=== PATIENT | female | born 1940 | race Hispanic/Latino ===

== ENCOUNTER 2018-09-22 09:06 | Emergency (ER) | payer MEDICARE ==
[~2018-09-22 09:06] MED LIST: ATOR10TA69 PO; GABA-531 PO; INSLAN SQ; ISOS30TA6 PO; LIRA0.6P SQ; LOSA1TAB37 PO; METF-444 PO; METO100T14 PO; OMEP40CA37 PO; PARO10TA71 PO; RANO500T3 PO
[2018-09-22] MEDS ORDERED: SODIUM BICARB 50MEQ 50ML VIAL ONE (09:39)
== END 2018-09-22 12:04 | disposition home or self-care (01) ==
LOC: EDH 09:06
DX: S62.317A Displaced fracture of base of fifth metacarpal bone, left hand, initial encounter for closed fracture (principal); S00.81XA Abrasion of other part of head, initial encounter; S80.02XA Contusion of left knee, initial encounter; S80.01XA Contusion of right knee, initial encounter; E11.9 Type 2 diabetes mellitus without complications; I10 Essential (primary) hypertension; E78.5 Hyperlipidemia, unspecified; Z79.4 Long term (current) use of insulin; W18.39XA Other fall on same level, initial encounter; Y93.01 Activity, walking, marching and hiking; Y92.89 Other specified places as the place of occurrence of the external cause; Y99.8 Other external cause status
CPT/HCPCS: 70450; 72125; 73130; 99284; J3490

== ENCOUNTER 2019-08-06 23:46 | Emergency (ER) | payer MEDICARE ==
[2019-08-07 00:14] LABS: BASOPHILS % (AUTO) 0.6 % (0.0-5.0); EOSINOPHILS % (AUTO) 2.3 % (0.0-8.0); HEMATOCRIT 32.9 % (36-48); LYMPHOCYTES % (AUTO) 51.9 % (21.0-51.0); MEAN CORPUSCULAR HEMOGLOBIN 32.8 pg (27.0-33.0); MEAN CORPUSCULAR HGB CONC 34.2 g/dL (32.0-36.0); MONOCYTES % (AUTO) 7.1 % (3.0-13.0); NEUTROPHILS % (AUTO) 38.1 % (40.0-77.0); NUCLEATED RED BLOOD CELLS 0.1 % (0.0-0.19); PLATELET COUNT (AUTO) 235 K/uL (130-400); RED BLOOD CELL COUNT(AUTO) 3.43 MIL/uL (4.00-5.50); RED CELL DISTRIBUTION WIDTH 13.1 % (11.0-15.5); WHITE BLOOD COUNT (AUTO) 7.4 K/uL (4.8-10.8)
[2019-08-07 00:26] LABS: CREATININE 1.2 mg/dL (0.5-1.5); POTASSIUM 4.5 mmol/L (3.5-5.1)
[2019-08-07 00:31] LABS: ALBUMIN 3.2 g/dL (3.5-5.0); BILIRUBIN,TOTAL 0.2 mg/dL (0.2-1.0); TOTAL PROTEIN, SERUM 7.2 g/dL (6.0-8.3)
[2019-08-07] MEDS ORDERED: INSULIN HUMULIN R 100 UNIT/ML 3ML ONE (01:26)
[2019-08-07] MEDS ORDERED: SODIUM CHLORIDE 0.9% 1000ML 1,000 ML IV ONE (01:27)
[2019-08-07 01:57] LABS: APPEARANCE,URINE Clear (CLEAR); BILIRUBIN,URINE Negative (NEGATIVE); COLOR,URINE Yellow (YELLOW); GLUCOSE, URINE (UA) >=1000 mg/dL (NEGATIVE); KETONES,URINE Negative (NEGATIVE); LEUKOCYTE ESTERASE ,URINE Trace (NEGATIVE); NITRATE,URINE Negative (NEGATIVE); OCCULT BLOOD,URINE Negative (NEGATIVE); PROTEIN,URINE Negative (NEGATIVE)
[2019-08-07 03:43] LABS: BACTERIA,URINE Few /HPF (None Seen); RBC,URINE 0-1 /HPF (0-1); WBC,URINE 0-1 /HPF (0-1)
== END 2019-08-07 04:10 | disposition home or self-care (01) ==
LOC: EDH 23:46
DX: J01.00 Acute maxillary sinusitis, unspecified (principal); E11.9 Type 2 diabetes mellitus without complications; R42 Dizziness and giddiness; I10 Essential (primary) hypertension; Z79.4 Long term (current) use of insulin; Z90.49 Acquired absence of other specified parts of digestive tract
CPT/HCPCS: 36415; 70450; 80053; 81001; 82948; 85025; 93005; 96361; 96374; 99285; J1815; J7030

== ENCOUNTER → 2022-02-22 | Outpatient (CLI) | payer MEDICARE ==
[~2022-02-22] MED LIST changes: -ISOS30TA6 PO; +ISOS30TA92 PO; +OMEP40CA21 PO; -OMEP40CA37 PO
== END | disposition home or self-care (01) ==
LOC: SHCH 08:15
PROVIDERS: ATTEND Internal Medicine Cardiovascular Disease
DX: I35.1 Nonrheumatic aortic (valve) insufficiency (principal); I11.9 Hypertensive heart disease without heart failure; I25.119 Atherosclerotic heart disease of native coronary artery with unspecified angina pectoris; E11.9 Type 2 diabetes mellitus without complications; E78.5 Hyperlipidemia, unspecified
CPT/HCPCS: 93306

== ENCOUNTER → 2022-04-19 | Outpatient (CLI) | payer MEDICARE | END | disposition home or self-care (01) | LOC: OIH 11:18 | PROVIDERS: ATTEND Internal Medicine Cardiovascular Disease | DX: I73.9 Peripheral vascular disease, unspecified (principal) | CPT/HCPCS: 93925 ==

== ENCOUNTER → 2022-09-05 | Outpatient (CLI) | payer MEDICARE | END | disposition home or self-care (01) | LOC: SHCH 08:57 | PROVIDERS: ATTEND Internal Medicine Cardiovascular Disease | DX: I87.2 Venous insufficiency (chronic) (peripheral) (principal) | CPT/HCPCS: 93970 ==

== ENCOUNTER → 2024-09-28 | Outpatient (CLI) | payer MEDICARE ==
--- NOTE | 2024-09-28 12:56 | HMCIMG ---
SCOLIOSIS 2-3VW REASON: SCOLIOSIS. COMPARISON: None TECHNIQUE: Scoliosis series was obtained. FINDINGS: There is levoscoliosis of thoracolumbar spine with scoliotic angle of 14 degrees. There are degenerative changes with spondylosis. No loss of vertebral height is seen. IMPRESSION: Scoliosis.
--- NOTE | 2024-09-28 13:00 | HMCIMG ---
LUMBAR W FLEXION/EXTENSION REASON: RIGHT LOW BACK PAIN. COMPARISON: None TECHNIQUE: 4 images of lumbar spine were obtained including flexion and extension views. FINDINGS: Grade 1 anterolisthesis is seen at the L5-S1 level with disc space narrowing. Disc space narrowing are also seen at L2-3, L3-4 and L4-5 levels. There are degenerative changes with spondylosis. Vascular calcifications are seen. IMPRESSION: DJD with spondylosis.
--- NOTE | 2024-09-28 13:02 | HMCIMG ---
SHOULDER COMP 2+VWS RT HISTORY: Pain COMPARISON: None TECHNIQUE: 2 images of right shoulder were obtained. FINDINGS: There is no acute displaced fracture or dislocation. Degenerative changes are seen. IMPRESSION: 1. Findings as described above.
== END | disposition home or self-care (01) ==
LOC: RAH 09:49
PROVIDERS: ATTEND Physical Medicine & Rehabilitation
DX: M19.011 Primary osteoarthritis, right shoulder (principal); M47.816 Spondylosis without myelopathy or radiculopathy, lumbar region; M43.17 Spondylolisthesis, lumbosacral region; M48.061 Spinal stenosis, lumbar region without neurogenic claudication; M41.85 Other forms of scoliosis, thoracolumbar region; M75.101 Unspecified rotator cuff tear or rupture of right shoulder, not specified as traumatic; M25.511 Pain in right shoulder; M54.50 Low back pain, unspecified; M41.9 Scoliosis, unspecified; E66.811 Obesity, class 1
CPT/HCPCS: 72082; 72114; 73030

== ENCOUNTER → 2024-10-16 | Outpatient (CLI) | payer MEDICARE ==
--- NOTE | 2024-10-16 12:19 | HMCIMG ---
MR SPINAL CANAL, LUMBAR WO CON HISTORY: Spinal stenosis COMPARISON: None TECHNIQUE: MRI of the lumbar spine was performed utilizing multiple pulse sequences in axial , coronal and sagittal plane. Patient was not given contrast through intravenous route. FINDINGS: Entered degenerative changes are seen at L2-3 through L5-S1 level. Grade 1 anterolisthesis is seen at the L5-S1 level. No abnormal signal intensity is seen of the visualized bony structure. No loss of vertebral height is seen. There is straightening of normal lumbar curvature which may be related to muscle spasm or positioning. Degenerative disc signals are present at all lumbar spine levels. Visualized distal conus is unremarkable. At the L1-L2 level, there is spondylotic disc causing anterior thecal sac compression with bilateral lateral recess stenosis and minimal bilateral neural foraminal stenosis. The thecal sac measures approximately 8.6 mm in its anterior posterior dimension. At the L2-L3 level, there is spondylotic disc with annular disc bulge and bilateral ligamentum flavum hypertrophy causing anterior thecal sac compression with bilateral lateral recess stenosis and bilateral neural foraminal stenosis. The thecal sac measures approximately 5.9 mm in its anterior posterior dimension. At the L3-L4 level, there is spondylotic disc with annular disc bulge and bilateral ligamentum flavum hypertrophy causing anterior thecal sac compression with bilateral lateral recess stenosis and bilateral neural foraminal stenosis. The thecal sac measures approximately 3.1 mm in its anterior posterior dimension. At the L4-L5 level, there is spondylotic disc with annular disc bulge and bilateral ligamentum flavum hypertrophy causing anterior thecal sac compression with bilateral lateral recess stenosis and bilateral neural foraminal stenosis. The thecal sac measures approximately 1 mm in its anterior posterior dimension. At the L5-S1 level, there is spondylotic disc with annular disc bulge and bilateral ligamentum flavum hypertrophy causing anterior thecal sac compression with bilateral lateral recess stenosis and bilateral neural foraminal stenosis. The thecal sac measures approximately 4.7 mm in its anterior posterior dimension. IMPRESSION: 1. DJD with lumbar spine spondylosis and extensive central canal narrowing from L2-3 through L5-S1 levels.
--- NOTE | 2024-10-16 12:21 | HMCIMG ---
MR SPINAL CANAL, CERV WO CON HISTORY: Spinal stenosis COMPARISON: None TECHNIQUE: MRI of the cervical spine was performed utilizing multiple pulse sequences in axial, coronal and sagittal plane. Patient was not given contrast through intravenous route. FINDINGS: ] Degenerative changes with disc space narrowing are seen at C5-6 level. No abnormal signal intensity is seen of the visualized bony structure. No loss of vertebral height is seen. There is straightening of normal lordotic cervical curvature which may be related to muscle spasm or positioning. Degenerative disc signals are present at all cervical spine levels. Cerebellar tonsils are in normal position. The cervical cord is of normal signal intensity without cord compression or impingement. At the C3-4 level, there is spondylotic disc causing anterior CSF space effacement with bilateral lateral recess stenosis and mild bilateral neural foraminal stenosis. The central canal measures approximately 5. mm in its anterior posterior dimension. At the C4-5 level, there is spondylotic disc causing anterior CSF space effacement with bilateral lateral recess stenosis and mild bilateral neural foraminal stenosis. The central canal measures approximately 4.6 mm in its anterior posterior dimension. At the C5-6 level, there is spondylotic disc with central disc protrusion causing anterior CSF space effacement with bilateral lateral recess stenosis and bilateral neural foraminal stenosis. The central canal measures approximately 3.3 mm in its anterior posterior dimension. At the C6-7 level, there is spondylotic disc with central disc protrusion causing anterior CSF space effacement with bilateral lateral recess stenosis and bilateral neural foraminal stenosis. The central canal measures approximately 5.1 mm in its anterior posterior dimension. IMPRESSION: 1. DJD with cervical spine spondylosis and central canal narrowing as described above.
== END | disposition home or self-care (01) ==
LOC: RAH 11:05
PROVIDERS: ATTEND Physical Medicine & Rehabilitation
DX: M50.223 Other cervical disc displacement at C6-C7 level (principal); M47.812 Spondylosis without myelopathy or radiculopathy, cervical region; M51.379 Other intervertebral disc degeneration, lumbosacral region without mention of lumbar back pain or lower extremity pain; M47.817 Spondylosis without myelopathy or radiculopathy, lumbosacral region; M48.02 Spinal stenosis, cervical region; M48.061 Spinal stenosis, lumbar region without neurogenic claudication
CPT/HCPCS: 72141; 72148

== ENCOUNTER → 2024-12-23 | Outpatient (CLI) | payer MEDICARE ==
--- NOTE | 2024-12-28 09:00 | HMCSR ---
APPROVED REPORT Laterality: Bilateral Indications Claudication: , PAD VELOCITY AND DOPPLER WAVEFORM ANALYSIS ASSISTANT GM OF CONTENT & DELIVERY (R) 152.0cm/sec, Biphasic, ASSISTANT GM OF CONTENT & DELIVERY (L) 146.8cm/sec, Biphasic, Prof Fem Art. (R) 77.4cm/sec, Biphasic, Prof Fem Art. (L) 120.7cm/sec, Biphasic, Fem Art Prox. (R) 122.8cm/sec, Biphasic, Fem Art Prox. (L) 117.5cm/sec, Biphasic, Fem Art Mid. (R) 72.7cm/sec, Biphasic, Fem Art Mid. (L) 78.1cm/sec, Biphasic, Fem Art Dist (R) 83.4cm/sec, Biphasic, Fem Art Dist. (L) 151.7cm/sec, Biphasic, Pop Art(AK) (R) 124.2cm/sec, Biphasic, Pop Art (AK) (L) 127.2cm/sec, Biphasic, Pop Art (Fossa)(R) 106.3cm/sec, Biphasic, Pop Art (Fossa) (L) 137.0cm/sec, Biphasic, Pop Art(BK) (R) 78.7cm/sec, Biphasic, Pop Art (BK) (L) 90.3cm/sec, Biphasic, MACHINE STRAP BUCKLER Prox. (R) cm/sec, Occluded, MACHINE STRAP BUCKLER Prox. (L) 44.9cm/sec, Monophasic, MACHINE STRAP BUCKLER Mid. (R) cm/sec, Occluded, MACHINE STRAP BUCKLER Mid. (L) cm/sec, Occluded, MACHINE STRAP BUCKLER Dist. (R) cm/sec, Occluded, MACHINE STRAP BUCKLER Dist. (L) cm/sec, Occluded, Per Art Prox. (R) 84.2cm/sec, Monophasic, Per Art Prox. (L) 60.0cm/sec, Monophasic, Per Art Mid. (R) 120.7cm/sec, Monophasic, Per Art Mid. (L) 106.5cm/sec, Monophasic, Per Art Dist. (R) 96.2cm/sec, Monophasic, Per Art Dist. (L) 125.6cm/sec, Monophasic, GRIS Prox. (R) 311.0cm/sec, Biphasic, Severe > 75%GRIS Prox. (L) 53.0cm/sec, Biphasic, GRIS Mid. (R) 56.5cm/sec, Monophasic GRIS Mid. (L) cm/sec, Occluded, GRIS Dist. (R) 72.7cm/sec, Monophasic, GRIS Dist. (L) 88.3cm/sec, Monophasic, Recollateralized Technologist Impression Suggestive of infra-popliteal disease in the bilateral lower extremities. Velocities are suggestive of >75% stneosis in the Right proximal GRIS. Occlusion of the Right MACHINE STRAP BUCKLER and Left mid to distal MACHINE STRAP BUCKLER. Right mid GRIS appears occluded with recollaterlaized flow distally. Conclusion Severe bilateral infrapopliteal PAD Velocities are suggestive of >75% stneosis in the Right proximal GRIS. Occlusion of the Right MACHINE STRAP BUCKLER and Left mid to distal MACHINE STRAP BUCKLER. Right mid GRIS appears occluded with recollaterlaized flow distally. Conclusion Severe bilateral infrapopliteal PAD Velocities are suggestive of >75% stneosis in the Right proximal GRIS. Occlusion of the Right MACHINE STRAP BUCKLER and Left mid to distal MACHINE STRAP BUCKLER. Right mid GRIS appears occluded with recollaterlaized flow distally.
--- NOTE | 2024-12-28 09:01 | HMCSR ---
APPROVED REPORT Bilateral Lower Extremity Venous Study for Venous Competence., DVT. Indications i87.1,i87.2 Vein Imaging CFV (R): Normal flow, augmentation and compression. No evidence of DVT. 10.9mm 783ms of reflux. SFJ (R): Normal flow, augmentation and compression. No evidence of DVT. FEM (R): Normal flow, augmentation and compression. No evidence of DVT. POP (R): Normal flow, augmentation and compression. No evidence of DVT. DFV (R): Normal flow, augmentation and compression. No evidence of DVT. PTV (R): Normal flow, augmentation and compression. No evidence of DVT. Peroneals (R): Normal flow, augmentation and compression. No evidence of DVT. CFV (L): Normal flow, augmentation and compression. No evidence of DVT. 12.7mm 1283ms of reflux. SFJ (L): Normal flow, augmentation and compression. No evidence of DVT. FEM (L): Normal flow, augmentation and compression. No evidence of DVT. POP (L): Normal flow, augmentation and compression. No evidence of DVT. DFV (L): Normal flow, augmentation and compression. No evidence of DVT. PTV (L): Normal flow, augmentation and compression. No evidence of DVT. Peroneals (L): Normal flow, augmentation and compression. No evidence of DVT. Technologist Impression Deep veins of the bilateral lower extremities appear patent and compressible without thrombus. Deep venous reflux noted in the LCFV. Superficial venous insufficiency noted in the RGSV, proximal RSSV and LGSV. RGSV junction 6.0mm 0.0ms thigh 3.4mm 4100ms knee 3.5mm 4200ms calf 3.2mm 0.0ms RSSV -calcified prox 4.4mm 1011ms mid 2.2mm 0.0ms LGSV junction 7.3mm 3983ms thigh 3.1mm 0.0ms knee [id number] calf 2.1mm 0.0ms LSSV prox 3.1mm 0.0ms midi 1.9mm 0.0ms Conclusion Deep venous reflux noted in the LCFV. Superficial venous insufficiency noted in the RGSV, proximal RSSV and LGSV. Consider formal venography with IVC clinically indicated Conclusion Deep venous reflux noted in the LCFV. Superficial venous insufficiency noted in the RGSV, proximal RSSV and LGSV. Consider formal venography with IVC clinically indicated
== END | disposition home or self-care (01) ==
LOC: SHCH 14:15
PROVIDERS: ATTEND Internal Medicine Cardiovascular Disease
DX: I87.1 Compression of vein (principal); I87.2 Venous insufficiency (chronic) (peripheral); I73.9 Peripheral vascular disease, unspecified
CPT/HCPCS: 93925; 93970